=== PATIENT | female | born 1960 | race Caucasian/White ===

== ENCOUNTER → 2019-08-31 | Outpatient (CLI) | payer OTHER ==
[~2019-08-31] MED LIST: AMOXICILLIN500 MG PO; DIFLUCAN150 MG PO; PEN-VEE K500 MG PO; VICODIN ES 7501 TAB PO
[2019-08-31 09:20] LABS: HEMATOCRIT 44.2 % (37.0-47.0); MEAN CELL VOLUME 97.8 fl (81.0-99.0); MEAN CORPUSCULAR HGB 33.2 pg (27.0-31.0); MEAN CORPUSCULAR HGB CONC 33.9 g/dl (33.0-37.0); MEAN PLATELET VOLUME 9.7 fl (9.6-12.3); RED BLOOD COUNT 4.52 10*6/uL (4.10-5.10); RED CELL DISTRI WIDTH 12.4 % (0-14.5); WHITE BLOOD COUNT 8.1 10*3/uL (4.8-10.8)
[2019-08-31 09:36] LABS: ALKALINE PHOSPHATASE 57 U/L (45-117); BUN 18 mg/dl (7-24); CHLORIDE 107 mmol/L (98-107); CHOLESTEROL 168 mg/dL (<200); CREATININE 0.92 mg/dL (0.55-1.02); HDL CHOLESTEROL 118 mg/dl (40-60); LDL CHOLESTEROL 34 mg/dL (9-159); POTASSIUM 3.5 mmol/L (3.5-5.1); SGOT/AST 18 IU/L (3-35); SGPT/ALT 18 U/L (12-78); SODIUM 139 mmol/L (136-145); TOTAL PROTEIN 7.5 gm/dL (6.4-8.2); TRIGLYCERIDES 82 mg/dl (<150); VLDL CHOLESTEROL 16 mg/dL (6-40)
== END | disposition home or self-care (01) ==
LOC: LAB 08:43
PROVIDERS: Family Medicine
DX: Z13.220 Encounter for screening for lipoid disorders (principal); J44.9 Chronic obstructive pulmonary disease, unspecified; R79.82 Elevated C-reactive protein (CRP); E55.9 Vitamin D deficiency, unspecified; H91.91 Unspecified hearing loss, right ear; Z87.891 Personal history of nicotine dependence

== ENCOUNTER → 2019-10-17 | Outpatient (CLI) | payer OTHER | END | disposition home or self-care (01) | LOC: CT 10-12 08:00 | DX: R05 Cough (principal); Z87.891 Personal history of nicotine dependence ==

== ENCOUNTER → 2020-04-27 | Outpatient (CLI) | payer SELFPAY | END | disposition home or self-care (01) | LOC: COVID19 10:05 | PROVIDERS: ATTEND Family Medicine | DX: Z20.822 Contact with and (suspected) exposure to COVID-19 (principal) ==

== ENCOUNTER → 2023-10-27 | Outpatient (CLI) | payer OTHER | END | disposition home or self-care (01) | LOC: US 15:00 | PROVIDERS: ATTEND Nurse Practitioner | DX: R60.0 Localized edema (principal) ==

== ENCOUNTER → 2024-02-14 | Outpatient (CLI) | payer OTHER ==
[2024-02-14 15:47] LABS: HEMATOCRIT 44.4 % (37.0-47.0); MEAN CELL VOLUME 88.6 fl (81.0-99.0); MEAN CORPUSCULAR HGB 30.7 pg (27.0-31.0); MEAN CORPUSCULAR HGB CONC 34.7 g/dl (33.0-37.0); MEAN PLATELET VOLUME 11.5 fl (9.6-12.3); PLATELET COUNT AUTOMATED 200 10*3/uL (130-400); RED BLOOD COUNT 5.01 10*6/uL (4.10-5.10); RED CELL DISTRI WIDTH 14.1 % (0-14.5)
[2024-02-14 15:54] LABS: MANUAL DIFF REFLEX YES; WHITE BLOOD COUNT 41.6 10*3/uL (4.8-10.8)
[2024-02-14 16:41] LABS: TOTAL CELLS COUNTED 100 #CELLS
[2024-02-14 16:42] LABS: PLATELET SUFFICIENCY NORMAL (NORMAL)
== END | disposition home or self-care (01) ==
LOC: LAB 15:03
PROVIDERS: ATTEND Internal Medicine
DX: D72.829 Elevated white blood cell count, unspecified (principal)